=== PATIENT | female | born 1995 | race American Indian/Alaskan Native ===

== ENCOUNTER 2017-02-19 17:23 | Emergency (ER) | payer OTHER ==
[2017-02-19 17:24] VITALS: BMI 27.4
[2017-02-19 17:36] VITALS: BP 135/85; PULSE 84
[2017-02-19 17:43] VITALS: TEMP 99
[2017-02-19] MEDS ORDERED: guaiFENesin 200 mg/10 ml Syrup UD PO STA (17:51)
[2017-02-19] MEDS ORDERED: Amoxicillin-Clav 875-125 mg Tab PO STA (17:51)
--- NOTE | 2017-02-19 17:56 | ED PDOC ---
Arrival/HPI - General Historian: Patient - General Chief Complaint: ENT Problem Time Seen by Provider: 02/19/17 17:51 - History of Present Illness Narrative History of Present Illness (Text): 02/19/17 17:52 21yo female present with complaint of clear productive cough, sore throat, nasal congestion, facial pain, headache x 4days. States she was taking Nyquil without relieve. Denies fever, chills, sick contact, travel, any other complaint. (Ann Marie Mitchell) Past Medical History - Provider Review Nursing Documentation Reviewed: Yes - Past History Past History: No Previous - Infectious Disease Hx of Infectious Diseases: None - Tetanus Immunization Tetanus Immunization: Up to Date - Past Medical History Past Medical History: No Previous - Cardiac Hx Heart Murmur: Yes - Psychiatric Hx Depression: No Hx Emotional Abuse: No Hx Physical Abuse: No Hx Substance Use: No - Past Surgical History Past Surgical History: No Previous - Anesthesia Hx Anesthesia: No Hx Anesthesia Reactions: No Hx Malignant Hyperthermia: No - Suicidal Assessment Feels Threatened In Home Enviroment: No Family/Social History - Physician Review Nursing Documentation Reviewed: Yes Family/Social History: Unknown Family HX Smoking Status: Never Smoked Hx Alcohol Use: No Hx Substance Use: No Hx Substance Use Treatment: No Allergies/Home Meds Allergies/Adverse Reactions: Allergies No Known Allergies Allergy (Verified 02/19/17 17:36) Review of Systems - Physician Review All systems were reviewed & negative as marked: Yes - Review of Systems Constitutional: Normal Eyes: Normal ENT: Sore Throat, Rhinorrhea, Sinus Congestion Respiratory: Cough Cardiovascular: Normal Gastrointestinal: Normal Genitourinary Female: Normal Musculoskeletal: Normal Skin: Normal Neurological: Normal Endocrine: Normal Hemo/Lymphatic: Normal Psychiatric: Normal Physical Exam Vital Signs Reviewed: Yes Temperature: Afebrile Blood Pressure: Normal Pulse: Regular Respiratory Rate: Normal Appearance: Positive for: Well-Appearing, Non-Toxic, Comfortable Pain Distress: None Mental Status: Positive for: Alert and Oriented X 3 - Systems Exam Head: Present: Atraumatic, Normocephalic Pupils: Present: PERRL Extroacular Muscles: Present: EOMI Conjunctiva: Present: Normal Ears: Present: Normal Mouth: Present: Moist Mucous Membranes Pharnyx: Present: ERYTHEMA. No: EXUDATE, TONSILS ENLARGED, Peritonsilar Swelling, Uvular Deviation Nose (Internal): Present: Boggy (B/L), Other (Tenderness over the frontal sinus) Neck: Present: Normal Range of Motion Respiratory/Chest: Present: Clear to Auscultation, Good Air Exchange. No: Respiratory Distress, Accessory Muscle Use, Wheezes, Decreased Breath Sounds, Rales, Retracting, Rhonchi Cardiovascular: Present: Regular Rate and Rhythm, Normal S1, S2. No: Murmurs Abdomen: Present: Normal Bowel Sounds. No: Tenderness, Distention, Peritoneal Signs Back: Present: Normal Inspection Upper Extremity: Present: Normal Inspection. No: Cyanosis, Edema Lower Extremity: Present: Normal Inspection. No: Edema Neurological: Present: GCS=15, CN II-XII Intact, Speech Normal Skin: Present: Warm, Dry, Normal Color. No: Rashes Psychiatric: Present: Alert, Oriented x 3, Normal Insight, Normal Concentration Vital Signs Temp Pulse Resp BP Pulse Ox 02/19/17 18:07 16 99 02/19/17 17:43 99.0 F 84 18 135/85 98 02/19/17 17:32 99 F 84 18 135/85 98 Medical Decision Making ED Course and Treatment: I was available for consultation during PA evaluation. The chart was reviewed by me, and I agree with disposition. The documented history was done by the physician research and evaluation analyst. The documented physical exam was done by the physician research and evaluation analyst. The documented procedures were done by the physician research and evaluation analyst. ( Kelvin Holt) - Medication Orders Current Medication Orders: Discontinued Medications Amoxicillin/Clavulanate Potassium (Augmentin 875 Mg-125 Mg Tab) 1 tab PO STAT STA PRN Reason: Protocol Stop: 02/19/17 17:52 Last Admin: 02/19/17 18:08 Dose: 1 TAB Guaifenesin (Robitussin) 200 mg PO ONCE STA Stop: 02/19/17 17:52 Last Admin: 02/19/17 18:08 Dose: 200 MG Ibuprofen (Motrin Tab) 600 mg PO STAT STA Stop: 02/19/17 17:53 Last Admin: 02/19/17 18:08 Dose: 600 MG MAR Pain/Vitals Document 02/19/17 18:08 [email or web address] (Rec: 02/19/17 18:08 [email or web address] [facility] [place]-FAST- TRACK2) Pain Reassessment Is This A Pain ReAssessment? No Sleep Is patient sleeping during reassessment? 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 Ulcer: No History Surgical Site Infection Following: None - Disposition Have Diagnosis and Disposition been Completed?: Yes Disposition Time: 18:00 Patient Plan: Discharge - Disposition Diagnosis: Acute URI Disposition: HOME/ ROUTINE Discharge Instructions (ExitCare): Upper Respiratory Infection (ED) Additional Instructions: Follow up with your doctor Return to ED for any new or worsening symptoms Prescriptions: Amoxicillin/Clavulanate [Augmentin 875 MG-125 MG] 1 tab PO BID #14 tab Loratadine/Pseudoephedrine [Claritin-D 24 Hour Tablet] 1 each PO DAILY #20 tab.er.24h Benzonatate [Tessalon Perles] 100 mg PO TID #30 sgl Referrals: [facility] at [facility] [place] [Outside] - Follow up with primary
[2017-02-19 18:08] VITALS: RESP 16; O2SAT 99
== END 2017-02-19 18:08 | disposition home or self-care (01) ==
LOC: ED 17:23
DX: J06.9 Acute upper respiratory infection, unspecified (principal)

== ENCOUNTER 2017-08-30 18:37 | Emergency (ER) | payer OTHER ==
[2017-08-30 18:43] VITALS: BMI 31.6
[2017-08-30 18:45] VITALS: BP 132/92; PULSE 88; RESP 18; TEMP 98.6; O2SAT 99
--- NOTE | 2017-08-30 19:02 | ED PDOC ---
Arrival/HPI - General Chief Complaint: Cough, Cold, Congestion Time Seen by Provider: 08/30/17 18:49 - History of Present Illness Narrative History of Present Illness (Text): 08/30/17 19:03 21 yo F c/o 2-3 day h/o facial pain worse with bending, runny nose, nasal congestion and dry cough. Otherwise: (-) fever, (-) sore throat, (-) chills, (- ) SOB, (-) chest pain, (-) N/V/D, (-) abdominal pain, (-) flank pain, (-) urinary symptoms, (-) recent travel, (-) sick contacts. Past Medical History - Provider Review Nursing Documentation Reviewed: Yes - Past History Past History: No Previous - Infectious Disease Hx of Infectious Diseases: None - Tetanus Immunization Tetanus Immunization: Up to Date - Past Medical History Past Medical History: No Previous - Cardiac Hx Cardiac Disorders: Yes Hx Heart Murmur: Yes - Pulmonary Hx Respiratory Disorders: No - Neurological Hx Dizziness: No - HEENT Hx HEENT Disorder: No - Renal Hx Dialysis: No - Hematological/Oncological Hx Blood Disorders: No - Integumentary Hx Dermatological Disorder: No - Musculoskeletal/Rheumatological Hx Falls: No - Gastrointestinal Hx Fatty Liver Disease: No - Genitourinary/Gynecological Hx Bladder Cancer: No - Psychiatric Hx Depression: No Hx Emotional Abuse: No Hx Physical Abuse: No Hx Substance Use: No - Past Surgical History Past Surgical History: No Previous - Anesthesia Hx Anesthesia: No Hx Anesthesia Reactions: No Hx Malignant Hyperthermia: No - Suicidal Assessment Feels Threatened In Home Enviroment: No Family/Social History - Physician Review Nursing Documentation Reviewed: Yes Family/Social History: No Known Family HX Smoking Status: Never Smoked Hx Alcohol Use: No Hx Substance Use: No Hx Substance Use Treatment: No Allergies/Home Meds Allergies/Adverse Reactions: Allergies No Known Allergies Allergy (Verified 08/30/17 18:43) Review of Systems - Review of Systems Constitutional: Normal. absent: Fatigue, Weight Change, Fevers ENT: Normal, Rhinorrhea, Sinus Congestion. absent: Sore Throat Respiratory: Normal, Cough. absent: SOB, Sputum Musculoskeletal: Normal. absent: Arthralgias, Back Pain, Neck Pain Skin: Normal. absent: Rash, Pruritis, Skin Lesions Physical Exam - Physical Exam Narrative Physical Exam (Text): 08/30/17 19:02 GENERAL APPEARANCE: Patient is awake, alert, oriented x 3, in no acute distress. SKIN: Warm, dry; (-) cyanosis, (-) rash. (-) Decubitus Ulcer EYES: (-) conjunctival pallor, (-) scleral icterus, (-) conjunctival hemorrhage. ENMT: Mucous membranes moist. TMs: (-) erythema. Airway patent: (-) stridor. Pharynx: (-) erythema, (-) exudate. (+) Frontal and maxillary sinus tenderness. NECK: (-) tenderness, (-) stiffness, (-) meningismus, (-) lymphadenopathy. CHEST AND RESPIRATORY: (-) accessory muscle use. Lungs: (-) rales, (-) rhonchi, (-) wheezes, (-) rub; breath sounds equal bilaterally. HEART AND CARDIOVASCULAR: (-) irregularity; (-) murmur, (-) gallop, (-) rub. ABDOMEN AND GI: Soft; (-) tenderness, (-) guarding; (-) organomegaly; (-) mass ; (-) CVA tenderness. EXTREMITIES: (-) deformity; (-) cellulitis, (-) lymphangitis; (-) subungual hemorrhage; (-) edema. NEURO AND PSYCH: Mental status as above; (-) focal findings. Vital Signs Temp Pulse Resp BP Pulse Ox 08/30/17 18:44 98.6 F 88 18 132/92 H 99 Medical Decision Making ED Course and Treatment: 08/30/17 19:01 21 yo F c/o 2-3 day h/o facial pain, runny nose, nasal congestion and dry cough. Dx of sinusitis d/w the patient. Instructed to follow up with primary care physician in 1-2 days without fail. Advised to take medication as prescribed. Return to the emergency room at any time for any new or worsening symptoms. Patient states she fully agrees with and understands discharge instructions. States that she agrees with the plan and disposition. Verbalized and repeated discharge instructions and plan. I have given the patient opportunity to ask any additional questions. - PA / SPECIAL EDUCATION EDUCATIONAL ASSISTANT / Resident Statement MD/DO has reviewed & agrees with the documentation as recorded. Disposition/Present on Arrival - Present on Arrival Any Indicators Present on Arrival: No History of DVT/PE: No History of Uncontrolled Diabetes: No Urinary Catheter: No History of Decub. Ulcer: No History Surgical Site Infection Following: None - Disposition Have Diagnosis and Disposition been Completed?: Yes Diagnosis: Sinusitis Disposition: HOME/ ROUTINE Disposition Time: 18:59 Patient Plan: Discharge Patient Problems: Current Active Problems Problem Status Onset Sinusitis Acute Condition: STABLE Discharge Instructions (ExitCare): Sinusitis (ED) Print Language: ARGENTINE Additional Instructions: Thank you for letting us take care of you today. You were treated for sinusitis. The emergency medical care you received today was directed at your acute symptoms. If you were prescribed any medication, please fill it and take as directed. It may take several days for your symptoms to resolve. Return to the Emergency Department if your symptoms worsen, do not improve, or if you have any other problems. Please contact your doctor in 2 days for re-evaluation and follow up. Bring any paperwork you were given at discharge with you along with any medications you are taking to your follow up visit. Our treatment cannot replace ongoing medical care by a primary care provider (PCP) outside of the emergency department. Thank you for allowing the [employer] team to be part of your care today. Prescriptions: Amoxicillin/Potassium Clav [Augmentin 500-125 Tablet] 1 each PO TID #30 tablet Fluticasone Propionate [Flonase] 2 spr RONEL DAILY #1 bottle Referrals: Chris Muir MD [Primary Care Provider] - Follow up with primary Forms: [employer] (Lithuanian), WORK NOTE
[2017-08-30] MEDS ORDERED: Amoxicillin-Clav 500-125 mg Tab PO STA (19:39)
== END 2017-08-30 19:51 | disposition home or self-care (01) ==
LOC: ED 18:37
DX: J32.9 Chronic sinusitis, unspecified (principal)

== ENCOUNTER 2018-01-23 08:36 | Emergency (ER) | payer OTHER ==
[2018-01-23 08:37] VITALS: BMI 32.3
[2018-01-23 08:41] VITALS: PULSE 81; RESP 18; TEMP 97.9; O2SAT 99
[2018-01-23] MEDS ORDERED: Albuterol-Ipratrop 3 mg / 0.5 (3 ml) UD IH STA (08:51)
[2018-01-23] MEDS ORDERED: guaiFENesin DM 200 mg-20 mg/10 ml UD PO ONE (08:51)
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
--- NOTE | 2018-01-24 10:23 | CARD ---
APPROVED REPORT EKG Measurement Heart [id number] <Conclusion> Sinus rhythm with 1st degree AV block No change
== END 2018-01-23 09:59 | disposition left against medical advice (07) ==
LOC: ED 08:36
DX: R42 Dizziness and giddiness (principal); R05 Cough

== ENCOUNTER 2018-02-04 19:41 | Emergency (ER) | payer OTHER ==
[2018-02-04 19:42] VITALS: BMI 32.3
--- NOTE | 2018-02-04 21:08 | ED PDOC ---
Arrival/HPI - General Chief Complaint: Flu-like Symptoms Time Seen by Provider: 02/04/18 19:56 Historian: Patient - History of Present Illness Narrative History of Present Illness (Text): 02/04/18 21:07 This 22 yo female presents to this ED c/o cough x 2 weeks. Patient stated she was Dx. with Influenza during last ED visit. Patient was prescribed Tamiflu, and cough medication. However, patient continues with cough. Denies fever, sob , cp, abdominal pain, or urinary symptoms. Time/Duration: Other (see hpi) Context: Home Past Medical History - Provider Review Nursing Documentation Reviewed: Yes - Past History Past History: No Previous - Infectious Disease Hx of Infectious Diseases: None - Tetanus Immunization Tetanus Immunization: Up to Date - Past Medical History Past Medical History: No Previous - Cardiac Hx Cardiac Disorders: Yes Hx Heart Murmur: Yes - Pulmonary Hx Respiratory Disorders: No - Neurological Hx Dizziness: No - HEENT Hx HEENT Disorder: No - Renal Hx Dialysis: No - Hematological/Oncological Hx Blood Disorders: No - Integumentary Hx Dermatological Disorder: No - Musculoskeletal/Rheumatological Hx Falls: No - Gastrointestinal Hx Fatty Liver Disease: No - Genitourinary/Gynecological Hx Bladder Cancer: No - Psychiatric Hx Depression: No Hx Emotional Abuse: No Hx Physical Abuse: No Hx Substance Use: No - Past Surgical History Past Surgical History: No Previous - Anesthesia Hx Anesthesia: No Hx Anesthesia Reactions: No Hx Malignant Hyperthermia: No - Suicidal Assessment Feels Threatened In Home Enviroment: No Family/Social History - Physician Review Nursing Documentation Reviewed: Yes Family/Social History: Other (noncontributory) Smoking Status: Never Smoked Hx Alcohol Use: No Hx Substance Use: No Hx Substance Use Treatment: No Allergies/Home Meds Allergies/Adverse Reactions: Allergies No Known Allergies Allergy (Verified 02/04/18 20:22) Review of Systems - Review of Systems Constitutional: Normal. absent: Fatigue, Weight Change, Fevers Eyes: Normal ENT: Normal. absent: Sore Throat, Rhinorrhea Respiratory: Cough. absent: SOB, Sputum, Wheezing Cardiovascular: Normal. absent: Chest Pain, Palpitations Gastrointestinal: Normal. absent: Abdominal Pain, Nausea, Vomiting Genitourinary Female: Normal. absent: Dysuria, Frequency, Hematuria Musculoskeletal: Normal Skin: Normal. absent: Rash, Cellulitis Neurological: Normal. absent: Headache, Focal Weakness, Gait Changes, Speech Changes, Facial Droop Endocrine: Normal Hemo/Lymphatic: Normal Psychiatric: Normal Physical Exam Vital Signs Temp Pulse Resp BP Pulse Ox 02/04/18 20:24 98.4 F 83 18 123/83 98 02/04/18 20:23 98.4 F 85 18 123/83 98 Temperature: Afebrile Blood Pressure: Normal Pulse: Regular Respiratory Rate: Normal Appearance: Positive for: Well-Appearing, Non-Toxic, Comfortable Pain Distress: None Mental Status: Positive for: Alert and Oriented X 3 - Systems Exam Head: Present: Atraumatic, Normocephalic Pupils: Present: PERRL Extroacular Muscles: Present: EOMI Conjunctiva: Present: Normal Mouth: Present: Moist Mucous Membranes Pharnyx: Present: Normal. No: ERYTHEMA, EXUDATE, TONSILS ENLARGED Neck: Present: Normal Range of Motion Respiratory/Chest: Present: Clear to Auscultation, Good Air Exchange. No: Respiratory Distress, Accessory Muscle Use, Wheezes, Decreased Breath Sounds, Rales, Retracting, Rhonchi, Tender to Palpation Cardiovascular: Present: Regular Rate and Rhythm, Murmurs (known murmur by patient), Normal S1, S2 Abdomen: Present: Normal Bowel Sounds. No: Tenderness, Distention, Peritoneal Signs Back: Present: Normal Inspection. No: CVA Tenderness Upper Extremity: Present: Normal Inspection. No: Cyanosis, Edema Lower Extremity: Present: Normal Inspection. No: Edema Neurological: Present: GCS=15, CN II-XII Intact, Speech Normal, Motor Func Grossly Intact, Normal Sensory Function, Normal Cerebellar Funct, Gait Normal Skin: Present: Warm, Dry, Normal Color. No: Rashes Psychiatric: Present: Alert, Oriented x 3, Normal Insight, Normal Concentration Medical Decision Making ED Course and Treatment: 02/04/18 22:40 Patient is requesting ABX. Re-evaluation Time: 22:40 Reassessment Condition: Re-examined, Improved - RAD Interpretation Narrative RAD Interpretations (Text): 02/04/18 22:40 cxr: NAD Radiology Orders: 02/04/18 21:17 CHEST TWO VIEWS (PA/LAT) [RAD] Stat Disposition/Present on Arrival - Present on Arrival Any Indicators Present on Arrival: No History of DVT/PE: No History of Uncontrolled Diabetes: No Urinary Catheter: No History of Decub. Ulcer: No History Surgical Site Infection Following: None - Disposition Have Diagnosis and Disposition been Completed?: Yes Diagnosis: Bronchitis Disposition: HOME/ ROUTINE Disposition Time: 22:41 Patient Plan: Discharge Patient Problems: Current Active Problems Problem Status Onset Bronchitis Acute Condition: GOOD Discharge Instructions (ExitCare): Acute Bronchitis Additional Instructions: Call private doctor for follow up visit in 1-2 days. Take medication as instructed. Prescriptions: Azithromycin [Z-Constantin] 250 mg PO DAILY #4 tab Promethazine [Phenergan Syrup] 6.25 mg PO Q4H PRN #120 ml PRN Reason: Cough Referrals: Chris Muir MD [Primary Care Provider] - Follow up with primary Forms: [email or web address] (Cook Islander), WORK NOTE
[2018-02-04] MEDS ORDERED: Promethazine 6.25 MG/5 ML CUP PO STA (22:43)
[2018-02-05 02:36] VITALS: BP 122/78; PULSE 72; RESP 16; TEMP 98; O2SAT 99
--- NOTE | 2018-02-05 08:32 | RAD ---
HISTORY: cough COMPARISON: 06/28/2015 TECHNIQUE: Chest PA and lateral FINDINGS: LUNGS: No active pulmonary disease. PLEURA: No significant pleural effusion identified. No pneumothorax apparent. CARDIOVASCULAR: Normal. OSSEOUS STRUCTURES: No significant abnormalities. VISUALIZED UPPER ABDOMEN: Normal. OTHER FINDINGS: None. IMPRESSION: No active disease. No significant interval change compared to the prior examination(s). Concordant results with the preliminary interpretation rendered by the emergency department physician procedure.
== END 2018-02-04 21:00 | disposition home or self-care (01) ==
LOC: ED 19:41
DX: J40 Bronchitis, not specified as acute or chronic (principal)

== ENCOUNTER 2018-02-24 19:42 | Emergency (ER) | payer OTHER ==
[2018-02-24 19:42] VITALS: BMI 32.3
[2018-02-24 20:21] VITALS: RESP 18; O2SAT 99
[2018-02-24] MEDS ORDERED: Sodium Chloride 0.9% 2,000 ML IV STA (20:32)
--- NOTE | 2018-02-24 20:45 | ED PDOC ---
Arrival/HPI - General Chief Complaint: GI Problem Time Seen by Provider: 02/24/18 20:25 Historian: Patient - History of Present Illness Narrative History of Present Illness (Text): 02/24/18 20:45 A 22 year old female presents to the emergency department complaining nonbloody bilious vomiting for 2 days. Patient notes associated right sided abdominal pain. Patient notes chills but denies any fever, diarrhea, chest pain, shortness of breath or any other complaints. Patients last LMP was 1 week ago. Patient denies any contraceptive use. Time/Duration: Other (2 days) Symptom Course: Unchanged Context: Home Past Medical History - Provider Review Nursing Documentation Reviewed: Yes - Past History Past History: No Previous - Infectious Disease Hx of Infectious Diseases: None - Tetanus Immunization Tetanus Immunization: Up to Date - Past Medical History Past Medical History: No Previous - Cardiac Hx Cardiac Disorders: Yes Hx Heart Murmur: Yes - Pulmonary Hx Respiratory Disorders: No - Neurological Hx Dizziness: No - HEENT Hx HEENT Disorder: No - Renal Hx Dialysis: No - Hematological/Oncological Hx Blood Disorders: No - Integumentary Hx Dermatological Disorder: No - Musculoskeletal/Rheumatological Hx Falls: No - Gastrointestinal Hx Fatty Liver Disease: No - Genitourinary/Gynecological Hx Bladder Cancer: No - Psychiatric Hx Depression: No Hx Emotional Abuse: No Hx Physical Abuse: No Hx Substance Use: No - Past Surgical History Past Surgical History: No Previous - Anesthesia Hx Anesthesia: No Hx Anesthesia Reactions: No Hx Malignant Hyperthermia: No - Suicidal Assessment Feels Threatened In Home Enviroment: No Family/Social History - Physician Review Nursing Documentation Reviewed: Yes Family/Social History: No Known Family HX Smoking Status: Never Smoked Hx Alcohol Use: No Hx Substance Use: No Hx Substance Use Treatment: No Allergies/Home Meds Allergies/Adverse Reactions: Allergies No Known Allergies Allergy (Verified 02/24/18 20:18) Review of Systems - Physician Review All systems were reviewed & negative as marked: Yes - Review of Systems Constitutional: absent: Fevers, Night Sweats Respiratory: absent: SOB Cardiovascular: absent: Chest Pain Gastrointestinal: Abdominal Pain, Vomiting. absent: Diarrhea Physical Exam Vital Signs Reviewed: Yes Vital Signs Temp Pulse Resp BP Pulse Ox 02/24/18 20:18 99.9 F H 91 H 18 137/98 H 99 Temperature: Febrile Blood Pressure: Hypertensive Pulse: Tachycardic Respiratory Rate: Normal Appearance: Positive for: Well-Appearing, Non-Toxic, Comfortable Pain Distress: None Mental Status: Positive for: Alert and Oriented X 3 - Systems Exam Head: Present: Atraumatic, Normocephalic Pupils: Present: PERRL Extroacular Muscles: Present: EOMI Conjunctiva: Present: Normal Mouth: Present: Moist Mucous Membranes Neck: Present: Normal Range of Motion Respiratory/Chest: Present: Clear to Auscultation, Good Air Exchange. No: Respiratory Distress, Accessory Muscle Use Cardiovascular: Present: Regular Rate and Rhythm, Normal S1, S2. No: Murmurs Abdomen: Present: Tenderness (Right upper and lower quadrant tenderness). No: Distention, Peritoneal Signs, Rebound, Guarding Back: Present: Normal Inspection Upper Extremity: Present: Normal Inspection. No: Cyanosis, Edema Lower Extremity: Present: Normal Inspection. No: Edema Neurological: Present: GCS=15, CN II-XII Intact, Speech Normal Skin: Present: Warm, Dry, Normal Color. No: Rashes Psychiatric: Present: Alert, Oriented x 3, Normal Insight, Normal Concentration Medical Decision Making ED Course and Treatment: 02/24/18 20:45 Impression: A 22 year old female with bilious vomiting and right sided abdominal pain Plan: -- Abdomen ultrasound -- Labs -- Urine culture and Urinalysis -- Toradol, Zofran and IV fluids -- Reassess and disposition Progress Notes: 02/24/18 22:20 US Abdomen shows: There is a negative sonographic Mann's sign per extractions technologist. No gallstones. No pericholecystic fluid. The gallbladder wall measures 2.6 mm which is within normal limits. The common bile duct measures 2.5 mm which is within normal limits. The liver is normal. The spleen measures 9.9 cm and is normal. The pancreas is suboptimally visualized. No hydronephrosis. Both kidneys measure approximately 10 cm in length. IMPRESSION: No acute findings. - Lab Interpretations Lab Results: 02/24/18 20:40 02/24/18 20:40 Lab Results 02/24/18 21:44: Urine Color Yellow, Urine Appearance Sl cloudy, Urine pH 8.5, Ur Specific [place] 1.020, Urine Protein 30 H, Urine Glucose (UA) Negative, Urine Ketones 15 H, Urine Blood Negative, Urine Nitrate Negative, Urine Bilirubin Negative, Urine Urobilinogen 1.0 H, Ur Leukocyte Esterase Negative, Urine RBC Negative, Urine WBC 2 - 5, Ur Epithelial Cells Many, Amorphous Sediment Few, Urine Bacteria Few 02/24/18 20:40: Beta HCG, Quant < 2.39 02/24/18 20:40: Sodium 141, Potassium 4.8, Chloride 102, Carbon Dioxide 25, Anion Gap 18, BUN 10, Creatinine 0.8, Est GFR ( Amer) > 60, Est GFR (Non- Af Amer) > 60, Random Glucose 110, Calcium 9.9, Total Bilirubin 0.7, AST 29, ALT 36, Alkaline Phosphatase 78, Total Protein 8.8 H, Albumin 5.0 H, Globulin 3.8, Albumin/Globulin Ratio 1.3, Lipase 86 02/24/18 20:40: PT 12.2, INR 1.07 02/24/18 20:40: WBC 10.0 D, RBC 5.06, Hgb 14.2, Hct 42.5, MCV 84.0, MCH 28.1, MCHC 33.4, RDW 14.5, Plt Count 396, MPV 9.7, Gran % 93.1 H, Lymph % (Auto) 4.3 L , [place] % (Auto) 2.3, Eos % (Auto) 0.2 L, Baso % (Auto) 0.1, Gran # 9.28 H, Lymph # (Auto) 0.4 L, [place] # (Auto) 0.2, Eos # (Auto) 0.0, Baso # (Auto) 0.01, Neutrophils % (Manual) Pending, Lymphocytes % (Manual) Pending, Monocytes % ( Manual) Pending I have reviewed the lab results: Yes - RAD Interpretation Radiology Orders: 02/24/18 20:30 ABDOMEN COMPLETE [US] Stat Perishable Freight Inspector: Radiologist - Medication Orders Current Medication Orders: Discontinued Medications Sodium Chloride (Sodium Chloride 0.9%) 2,000 mls @ 999 mls/hr IV .Q2H1M STA Stop: 02/24/18 22:32 Last Admin: 02/24/18 21:50 Dose: 999 mls/hr eMAR Start Stop Document 02/24/18 21:50 LA (Rec: 02/24/18 21:51 LA [id number]) Intravenous Solution Start Date 02/24/18 Start Time 21:50 End Date 02/24/18 End time 23:50 Total Infusion Time 120 Ketorolac Tromethamine (Toradol) 30 mg IVP STAT STA Stop: 02/24/18 20:33 Last Admin: 02/24/18 21:49 Dose: 30 mg MAR Pain Assessment Document 02/24/18 21:49 LA (Rec: 02/24/18 21:49 LA [id number]) Pain Reassessment Is this a pain reassessment? No Sleep Is patient sleeping during reassessment? No Location Pain Location Body Site Abdomen Description Description Cramping Intensity of Pain at present 9 IVP Administration Document 02/24/18 21:49 LA (Rec: 02/24/18 21:49 LA [id number]) Charges for Administration # of IVP Administrations 1 Ondansetron HCl (Zofran Inj) 8 mg IVP STAT STA Stop: 02/24/18 20:33 Last Admin: 02/24/18 21:49 Dose: 8 mg IVP Administration Document 02/24/18 21:49 LA (Rec: 02/24/18 21:50 LA [id number]) Charges for Administration # of IVP Administrations 1 - Scribe Statement The provider has reviewed the documentation as recorded by the Ray Rao Provider Scribe Attestation: All medical record entries made by the Scribe were at my direction and personally dictated by me. I have reviewed the chart and agree that the record accurately reflects my personal performance of the history, physical exam, medical decision making, and the department course for this patient. I have also personally directed, reviewed, and agree with the discharge instructions and disposition. Disposition/Present on Arrival - Present on Arrival Any Indicators Present on Arrival: No History of DVT/PE: No History of Uncontrolled Diabetes: No Urinary Catheter: No History of Decub. Ulcer: No History Surgical Site Infection Following: None - Disposition Have Diagnosis and Disposition been Completed?: Yes Diagnosis: Vomiting, Abdominal pain, Constipation Disposition: HOME/ ROUTINE Disposition Time: 22:43 Patient Plan: Discharge Condition: GOOD Discharge Instructions (ExitCare): Constipation, Adult (DC), Nausea and Vomiting, Adult (DC) Additional Instructions: Lisseth - Suziry that you are not feeling well. Zofran ODT is for nausea or vomiting. It is absorbed on your tongue, so you do not have to swallow it. Drink plenty of water. Take the Mag Citrate tomorrow morning so you can have a BM. Return to us if problems. Follow up with your doctor next week. BGest- Dr. Teofilo Baird Referrals: Chris Muir MD [Primary Care Provider] - Follow up with primary Forms: [employer] (Ukrainian)
[2018-02-24 21:01] LABS: BASO # 0.01 K/mm3 (0.0-2.0); BASO % 0.1 % (0.0-3.0); EOS % 0.2 % (1.5-5.0); GRAN # 9.28 (1.4-6.5); GRAN % 93.1 % (50.0-68.0); HEMOGLOBIN 14.2 g/dL (12.0-16.0); LYMPH # 0.4 (1.2-3.4); LYMPH % 4.3 % (22.0-35.0); MEAN CORPUSCULAR HEMOGLOBIN 28.1 pg (25.0-35.0); MEAN CORPUSCULAR HGB CONC 33.4 g/dl (31.0-37.0); MEAN PLATELET VOLUME 9.7 fl (7.0-11.0); MONO # 0.2 (0.1-0.6); MONO % 2.3 % (1.0-6.0); PLATELET COUNT 396 10^3/uL (120.0-450.0); RBC 5.06 10^6/uL (3.5-6.1); RED CELL DISTRIBUTION WIDTH 14.5 % (11.5-14.5)
[2018-02-24 21:14] LABS: INR 1.07 (0.93-1.08); PROTHROMBIN TIME 12.2 SECONDS (9.4-12.5)
[2018-02-24 21:23] LABS: ALB/GLOB RATIO 1.3 (1.1-1.8); ALT/SGPT 36 U/L (7-56); AST/SGOT 29 U/L (14-36); BLOOD UREA NITROGEN 10 mg/dL (7-21); CALCIUM 9.9 mg/dL (8.4-10.5); GFR AFRICAN-AMERICAN > 60; GFR NON-AFRICAN AMERICAN > 60; LIPASE 86 U/L (23-300)
[2018-02-24 22:12] LABS: PH,URINE 8.5 (4.7-8.0); URINE BILIRUBIN NEGATIVE (NEGATIVE); URINE BLOOD NEGATIVE (NEGATIVE); URINE GLUCOSE (UA) NEGATIVE (NEGATIVE); URINE LEUKOCYTE ESTERASE NEGATIVE Leu/uL (NEGATIVE); URINE PROTEIN 30 mg/dL (<30 mg/dL)
[2018-02-24 22:17] LABS: URINE COLOR YELLOW (YELLOW)
--- NOTE | 2018-02-24 22:17 | US ---
EXAM: US Abdomen Complete EXAM DATE/TIME: 02/24/2018 8:30 PM CLINICAL HISTORY: 22 years old, female; Pain; Abdominal pain; Epigastric; Additional info: Biliary colic//[place] TECHNIQUE: Real-time ultrasound of the abdomen (complete) with image documentation. COMPARISON: No relevant prior studies available. FINDINGS: There is a negative sonographic Mann's sign per vascular technologist. No gallstones. No pericholecystic fluid. The gallbladder wall measures 2.6 mm which is within normal limits. The common bile duct measures 2.5 mm which is within normal limits. The liver is normal. The spleen measures 9.9 cm and is normal. The pancreas is suboptimally visualized. No hydronephrosis. Both kidneys measure approximately 10 cm in length. IMPRESSION: No acute findings.
[2018-02-24 22:29] LABS: URINE AMORPHOUS SEDIMENT FEW; URINE BACTERIA FEW (NEG); URINE EPITHELIAL CELLS MANY /hpf (0-5); URINE RBC NEGATIVE /hpf (0-2)
[2018-02-24 22:30] LABS: URINE APPEARANCE SL CLOUDY (CLEAR)
[2018-02-24] MEDS ORDERED: Magnesium Citrate Oral SOL (300 ml) PO ONE (22:42)
[2018-02-24 22:55] LABS: LYMPHOCYTE 3 % (22.0-35.0); NEUTROPHIL 93 % (50.0-70.0)
[2018-02-24 22:56] LABS: ATYPICAL LYMPHOCYTE 3 % (0.0-0.0); MONOCYTE 1 % (1.0-6.0); PLATELET ESTIMATE NORMAL (NORMAL)
[2018-02-24 23:56] VITALS: BP 135/87; PULSE 89; TEMP 98
== END 2018-02-24 23:53 | disposition home or self-care (01) ==
LOC: ED 19:42
DX: K59.00 Constipation, unspecified (principal); R11.14 Bilious vomiting; R10.9 Unspecified abdominal pain
CPT/HCPCS: 76700; 80053; 81001; 81025; 83690; 84702; 85025; 85610; 87086; 96361; 96374; 96375; 99284; J1885; J2405; J7040

== ENCOUNTER 2018-05-30 21:03 | Emergency (ER) | payer OTHER ==
[2018-05-30 21:04] VITALS: BMI 32.3
[2018-05-30 21:12] VITALS: RESP 16; TEMP 98.3; O2SAT 99
--- NOTE | 2018-05-30 21:32 | ED PDOC ---
Arrival/HPI - General Chief Complaint: Abdominal Pain Time Seen by Provider: 05/30/18 21:31 Historian: Patient - History of Present Illness Narrative History of Present Illness (Text): 05/30/18 21:31 This 22 yo female presents to this ED c/o Vaginal itching with faulty smell x 2 days. Patient stated that symptoms are similar when she was Dx. vaginal candidiasis a few months ago. Patient denies vaginal discharge, fever, vaginal bleeding, STD exposure, or abdominal pain. Time/Duration: Other (see hpi) Context: Home Past Medical History - Provider Review Nursing Documentation Reviewed: Yes - Past History Past History: No Previous - Infectious Disease Hx of Infectious Diseases: None - Tetanus Immunization Tetanus Immunization: Up to Date - Past Medical History Past Medical History: No Previous - Cardiac Hx Cardiac Disorders: Yes Hx Heart Murmur: Yes - Pulmonary Hx Respiratory Disorders: No - Neurological Hx Neurological Disorder: No - HEENT Hx HEENT Disorder: No - Renal Hx Dialysis: No - Endocrine/Metabolic Hx Endocrine Disorders: No - Hematological/Oncological Hx Blood Disorders: No - Integumentary Hx Dermatological Disorder: No - Musculoskeletal/Rheumatological Hx Musculoskeletal Disorders: No - Gastrointestinal Hx Gastrointestinal Disorders: No - Genitourinary/Gynecological Hx Genitourinary Disorders: Yes Other/Comment: YEAST INFECTION - Psychiatric Hx Depression: No Hx Emotional Abuse: No Hx Physical Abuse: No Hx Substance Use: No - Past Surgical History Past Surgical History: No Previous - Anesthesia Hx Anesthesia: No Hx Anesthesia Reactions: No Hx Malignant Hyperthermia: No - Suicidal Assessment Feels Threatened In Home Enviroment: No Family/Social History - Physician Review Nursing Documentation Reviewed: Yes Family/Social History: Other (noncontributory) Smoking Status: Never Smoked Hx Alcohol Use: No Hx Substance Use: No Hx Substance Use Treatment: No Allergies/Home Meds Allergies/Adverse Reactions: Allergies No Known Allergies Allergy (Verified 05/30/18 21:06) Review of Systems - Review of Systems Constitutional: Normal. absent: Fatigue, Weight Change, Fevers Eyes: Normal ENT: Normal Respiratory: Normal. absent: SOB Cardiovascular: Normal. absent: Chest Pain Gastrointestinal: Normal. absent: Abdominal Pain, Nausea, Vomiting Genitourinary Female: Other (See hpi). absent: Dysuria, Frequency, Hematuria, Urine Output Changes, Vaginal Bleeding, Vaginal Discharge Musculoskeletal: Normal Skin: Normal. absent: Rash Neurological: Normal. absent: Headache, Dizziness, Focal Weakness Endocrine: Normal Hemo/Lymphatic: Normal Psychiatric: Normal Physical Exam Vital Signs Temp Pulse Resp BP Pulse Ox 05/30/18 21:07 98.3 F 80 16 138/93 H 99 Temperature: Afebrile Blood Pressure: Normal Pulse: Regular Respiratory Rate: Normal Appearance: Positive for: Well-Appearing, Non-Toxic, Comfortable Pain Distress: None Mental Status: Positive for: Alert and Oriented X 3 - Systems Exam Head: Present: Atraumatic, Normocephalic Pupils: Present: PERRL Extroacular Muscles: Present: EOMI Conjunctiva: Present: Normal Mouth: Present: Moist Mucous Membranes Neck: Present: Normal Range of Motion Respiratory/Chest: Present: Clear to Auscultation, Good Air Exchange. No: Respiratory Distress, Accessory Muscle Use Cardiovascular: Present: Regular Rate and Rhythm, Normal S1, S2. 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 No: Vaginal Bleeding, Vaginal Lesions, Adenexal Tenderness Back: Present: Normal Inspection Upper Extremity: Present: Normal Inspection, Normal ROM Lower Extremity: Present: Normal Inspection, Normal ROM Neurological: Present: GCS=15, CN II-XII Intact, Speech Normal, Motor Func Grossly Intact, Normal Sensory Function, Normal Cerebellar Funct Skin: Present: Warm, Dry, Normal Color. No: Rashes Psychiatric: Present: Alert, Oriented x 3, Normal Insight, Normal Concentration Medical Decision Making ED Course and Treatment: 05/30/18 21:43 Re-evaluation. Patient feels better. Discussed results and plan with patient who expresses understanding. All questions answered and there is agreement with the plan to discharge home with instructions. Patient stable for discharge. Return if symptoms persist or worsen. Re-evaluation Time: 21:43 Reassessment Condition: Re-examined, Improved Disposition/Present on Arrival - Present on Arrival Any Indicators Present on Arrival: No History of DVT/PE: No History of Uncontrolled Diabetes: No Urinary Catheter: No History of Decub. Ulcer: No History Surgical Site Infection Following: None - Disposition Have Diagnosis and Disposition been Completed?: Yes Diagnosis: Vaginal itching Disposition: HOME/ ROUTINE Disposition Time: 21:44 Patient Plan: Discharge Patient Problems: Current Active Problems Problem Status Onset Vaginal itching Acute Condition: GOOD Discharge Instructions (ExitCare): Vaginal Yeast Infection (DC) Additional Instructions: Call private doctor for follow up visit in 1-2 days. Take medication as instructed. Return to emergency if symptoms worsen. Prescriptions: Fluconazole [Diflucan] 150 mg PO DAILY PRN #1 tab PRN Reason: Itching / Pruritus Referrals: Rochelle Cat MD [Staff Provider] - Follow up with primary [facility] [Outside] - Follow up with primary Forms: [employer] (Burmese)
[2018-05-30 22:17] VITALS: BP 128/76; PULSE 78
== END 2018-05-30 22:15 | disposition home or self-care (01) ==
LOC: ED 21:03
DX: L29.2 Pruritus vulvae (principal)

== ENCOUNTER 2018-06-01 15:58 | Emergency (ER) | payer OTHER ==
[2018-06-01 15:58] VITALS: BMI 32.3
--- NOTE | 2018-06-01 16:34 | ED PDOC ---
Arrival/HPI - General Chief Complaint: ENT Problem Time Seen by Provider: 06/01/18 16:18 Historian: Patient - History of Present Illness Narrative History of Present Illness (Text): 06/01/18 16:28 22 yo female come in for evaluation of throat irritation developed for past few hours " after was cleaning in my basement and not sure if anything got in my throat". Pt sts, " my voice is raspy now, have throat pain now". Pt also reports , some vaginal irritation. Pt admits, was seen here last week when was diagnosed with candidal vaginitis, received Rx: Diflucan. Pt sts, " itchiness improved but still has some discomfort with urination". Otherwise, pt denies fever, chills, headache, dizziness, throat swelling or tightness, drooling, dysphagia, dyspnea, CP, SOB, wheezing, abd. pain, N/V/D, hematuria, back pain. Ambulate Ed foe evaluation, not in any apparent distress. Past Medical History - Provider Review Nursing Documentation Reviewed: Yes - Travel History Have you recently traveled outside [place] w/in the past 3 mons?: No - Past History Past History: No Previous - Infectious Disease Hx of Infectious Diseases: None - Tetanus Immunization Tetanus Immunization: Up to Date - Past Medical History Past Medical History: No Previous - Cardiac Hx Cardiac Disorders: Yes Hx Heart Murmur: Yes - Pulmonary Hx Respiratory Disorders: No - Neurological Hx Neurological Disorder: No - HEENT Hx HEENT Disorder: No - Renal Hx Renal Disorder: No - Endocrine/Metabolic Hx Endocrine Disorders: No - Hematological/Oncological Hx Blood Disorders: No - Integumentary Hx Dermatological Disorder: No - Musculoskeletal/Rheumatological Hx Musculoskeletal Disorders: No - Gastrointestinal Hx Gastrointestinal Disorders: No - Genitourinary/Gynecological Hx Genitourinary Disorders: Yes Other/Comment: YEAST INFECTION - Psychiatric Hx Psychophysiologic Disorder: No Hx Substance Use: No - Past Surgical History Past Surgical History: No Previous - Anesthesia Hx Anesthesia: No Hx Anesthesia Reactions: No Hx Malignant Hyperthermia: No - Suicidal Assessment Feels Threatened In Home Enviroment: No Family/Social History - Physician Review Nursing Documentation Reviewed: Yes Family/Social History: No Known Family HX Smoking Status: Never Smoked Hx Alcohol Use: No Hx Substance Use: No Hx Substance Use Treatment: No Allergies/Home Meds Allergies/Adverse Reactions: Allergies No Known Allergies Allergy (Verified 06/01/18 16:02) Review of Systems - Review of Systems Constitutional: Normal Eyes: Normal ENT: Sore Throat Respiratory: Normal. absent: SOB, Cough, Sputum, Wheezing Cardiovascular: Normal. absent: Chest Pain, Palpitations Gastrointestinal: Normal Genitourinary Female: Dysuria. absent: Frequency, Hematuria, Vaginal Bleeding, Vaginal Discharge Musculoskeletal: Normal Skin: Normal. absent: Rash Neurological: Normal Endocrine: Normal Hemo/Lymphatic: Normal Psychiatric: Normal Physical Exam Vital Signs Reviewed: Yes Vital Signs Temp Pulse Resp BP Pulse Ox 06/01/18 16:02 98.5 F 76 17 130/90 97 Temperature: Afebrile Blood Pressure: Normal Pulse: Regular Respiratory Rate: Normal Appearance: Positive for: Well-Appearing, Non-Toxic, Comfortable Pain Distress: None Mental Status: Positive for: Alert and Oriented X 3 - Systems Exam Head: Present: Normocephalic Conjunctiva: Present: Normal Ears: Present: NORMAL TM (B/L), Normal Canal. No: Erythema Mouth: Present: Moist Mucous Membranes, Normal Lips. No: Drooling Pharnyx: Present: ERYTHEMA (mild B/L), Other (uvula midline, no edema.). No: EXUDATE, TONSILS ENLARGED Neck: Present: Trachea Midline. No: JVD, Bruit Respiratory/Chest: Present: Clear to Auscultation, Good Air Exchange. No: Respiratory Distress, Accessory Muscle Use Cardiovascular: Present: Regular Rate and Rhythm, Normal S1, S2. No: Murmurs Abdomen: No: Tenderness, Distention, Peritoneal Signs, Rebound, Guarding Back: No: CVA Tenderness Upper Extremity: Present: Normal Inspection Lower Extremity: Present: Normal Inspection, NORMAL PULSES, Normal ROM. No: CALF TENDERNESS, Swelling, Deformity Neurological: Present: GCS=15, Speech Normal Skin: Present: Warm, Dry, Normal Color. No: Rashes Psychiatric: Present: Alert, Oriented x 3, Normal Insight, Normal Concentration Medical Decision Making ED Course and Treatment: 06/01/18 On re-evaluation, pt is afebrile, hemodynamicaly stable. Non-toxic. PulseOx 97% RA ENT: no acute findings. Uvula midline, no edema. Neck: Supple, (-) meningeal sign. Lungs: CTA B/L, BS equal B/L Abd: benign, (-) guarding, (-) rebound back: (-) CVA tenderness Neurologicaly intact,. UA results review and appears normal. Pt has clinical findings c/w throat pain r/o allergic reaction. Vulvovaginosis. Pt advised. ref. to f/u with PMD, [facility] In 2-3 days for re-evaluation. return if any new changes. - Lab Interpretations Lab Results: Lab Results 06/01/18 16:40: Urine Color Yellow, Urine Appearance Clear, Urine pH 6.0, Ur Specific [place] 1.025, Urine Protein Negative, Urine Glucose (UA) Negative, Urine Ketones Trace H, Urine Blood Negative, Urine Nitrate Negative, Urine Bilirubin Negative, Urine Urobilinogen 2.0 H, Ur Leukocyte Esterase Trace H, Urine RBC 0 - 2, Urine WBC 1 - 3, Ur Epithelial Cells 3 - 4, Urine Bacteria Trace Disposition/Present on Arrival - Present on Arrival Any Indicators Present on Arrival: No History of DVT/PE: No History of Uncontrolled Diabetes: No Urinary Catheter: No History of Decub. Ulcer: No History Surgical Site Infection Following: None - Disposition Have Diagnosis and Disposition been Completed?: Yes Diagnosis: Bacterial vaginosis, Allergic reaction Disposition: HOME/ ROUTINE Disposition Time: 17:19 Patient Plan: Discharge Patient Problems: Current Active Problems Problem Status Onset Allergic reaction Acute Bacterial vaginosis Acute Condition: STABLE Discharge Instructions (ExitCare): Bacterial Vaginosis, Vaginal Yeast Infection (DC) Prescriptions: hydrOXYzine HCl [Atarax] 25 mg PO BID #10 tab metroNIDAZOLE [Flagyl] 500 mg PO BID #10 tab Miconazole [Miconazole 7] 1 supp VG HS #7 sup Forms: [employer] (Kuwaiti)
[2018-06-01 16:55] LABS: URINE APPEARANCE CLEAR (CLEAR); URINE BILIRUBIN NEGATIVE (NEGATIVE); URINE BLOOD NEGATIVE (NEGATIVE); URINE COLOR YELLOW (YELLOW); URINE GLUCOSE (UA) NEGATIVE (NEGATIVE); URINE LEUKOCYTE ESTERASE TRACE Leu/uL (NEGATIVE); URINE PROTEIN NEGATIVE mg/dL (<30 mg/dL)
[2018-06-01 17:01] LABS: URINE BACTERIA TRACE (NEG); URINE RBC 0 - 2 /hpf (0-2)
[2018-06-01 18:23] VITALS: BP 122/73; PULSE 82; RESP 18; TEMP 98.4; O2SAT 98
== END 2018-06-01 18:00 | disposition home or self-care (01) ==
LOC: ED 15:58
DX: N76.0 Acute vaginitis (principal); T78.40XA Allergy, unspecified, initial encounter

== ENCOUNTER 2018-10-02 17:52 | Emergency (ER) | payer MEDICAID, OTHER ==
[2018-10-02 17:52] VITALS: BMI 32.3
[2018-10-02 18:03] VITALS: BP 140/82; PULSE 85; RESP 19; TEMP 98.7; O2SAT 100
--- NOTE | 2018-10-02 18:29 | ED PDOC ---
Arrival/HPI - General Chief Complaint: Cough, Cold, Congestion - History of Present Illness Narrative History of Present Illness (Text): 23 y/o F w/ h/o candidal vulvovaginitis presenting to the Emergency Department complaining of chest discomfort ongoing for the last 3 days. She reports having no productive cough with sinus congestion causing her to have chest discomfort. She reports having a pruritic, whitish thick discharge with associated burning from her vagina that she noticed worsening within the last 24 hours. She reports worsening of her symptoms with urination. She denies any changes in sexual partners within the last 6 months and reports a similar episode several months prior where she was prescribed Diflucan with intravaginal Flagyl with complete resolution of her symptoms. The patient denies any family history of diabetes & reports her LMP 3 weeks. Time/Duration: < week Symptom Onset: Gradual Symptom Course: Worsening Severity Level: Moderate Activities at Onset: Rest Context: Home Past Medical History - Provider Review Nursing Documentation Reviewed: Yes - Travel History Have you recently traveled outside [place] w/in the past 3 mons?: No - Past History Past History: No Previous - Infectious Disease Hx of Infectious Diseases: None - Tetanus Immunization Tetanus Immunization: Up to Date - Past Medical History Past Medical History: No Previous - Cardiac Hx Cardiac Disorders: Yes Hx Heart Murmur: Yes - Pulmonary Hx Respiratory Disorders: No - Neurological Hx Neurological Disorder: No - HEENT Hx HEENT Disorder: No - Renal Hx Renal Disorder: No - Endocrine/Metabolic Hx Endocrine Disorders: No - Hematological/Oncological Hx Blood Disorders: No - Integumentary Hx Dermatological Disorder: No - Musculoskeletal/Rheumatological Hx Musculoskeletal Disorders: No - Gastrointestinal Hx Gastrointestinal Disorders: No - Genitourinary/Gynecological Hx Genitourinary Disorders: Yes Other/Comment: YEAST INFECTION - Psychiatric Hx Psychophysiologic Disorder: No Hx Substance Use: No - Past Surgical History Past Surgical History: No Previous - Anesthesia Hx Anesthesia: No Hx Anesthesia Reactions: No Hx Malignant Hyperthermia: No - Suicidal Assessment Feels Threatened In Home Enviroment: No Family/Social History - Physician Review Nursing Documentation Reviewed: Yes Family/Social History: Unknown Family HX Smoking Status: Never Smoked Hx Alcohol Use: No Hx Substance Use: No Hx Substance Use Treatment: No Allergies/Home Meds Allergies/Adverse Reactions: Allergies No Known Allergies Allergy (Verified 10/02/18 18:03) Review of Systems - Physician Review All systems were reviewed & negative as marked: Yes - Review of Systems Genitourinary Female: Dysuria, Vaginal Discharge. absent: Frequency, Hematuria Physical Exam Vital Signs Reviewed: Yes Vital Signs Temp Pulse Resp BP Pulse Ox 10/02/18 17:59 98.7 F 85 19 140/82 100 Temperature: Afebrile Blood Pressure: Normal Pulse: Regular Respiratory Rate: Normal Appearance: Positive for: Well-Appearing, Non-Toxic, Comfortable Mental Status: Positive for: Alert and Oriented X 3 - Systems Exam Head: Present: Atraumatic, Normocephalic Pupils: Present: PERRL Extroacular Muscles: Present: EOMI Conjunctiva: Present: Normal Mouth: Present: Moist Mucous Membranes Neck: Present: Normal Range of Motion Respiratory/Chest: Present: Clear to Auscultation, Good Air Exchange. No: Respiratory Distress, Accessory Muscle Use Cardiovascular: Present: Regular Rate and Rhythm, Normal S1, S2. No: Murmurs Abdomen: Present: Normal Bowel Sounds. No: Tenderness, Distention, Peritoneal Signs Genitourinary/Pelvic Exam: Present: Normal External Genitalia, Vaginal Discharge (thin white viscous secretion), Cervical os Closed, Other (pain with insertion of finger). No: Vaginal Bleeding, Vaginal Lesions, Adenexal Tenderness, Odor Upper Extremity: Present: Normal Inspection, NORMAL PULSES. No: Cyanosis, Edema Lower Extremity: Present: Normal Inspection. No: Edema Neurological: Present: GCS=15, CN II-XII Intact, Speech Normal Skin: Present: Warm, Dry, Normal Color. No: Rashes Psychiatric: Present: Alert, Oriented x 3, Normal Insight, Normal Concentration Medical Decision Making ED Course and Treatment: 10/02/18 18:33 Impression 23 y/o F w/ h/o vulvovaginal candiditis presenting with URI symptoms and vaginal discharge Differential Diagnoses Include But Is Not Limited To: --Candidal Vulvovaginitis --Bacterial Vaginosis --Trichomoniasis --PID Plan --UA --Upreg --Urine Culture --Diflucan Progress Notes - Medication Orders Current Medication Orders: Fluconazole (Diflucan) 150 mg PO STAT STA; Protocol Stop: 10/02/18 18:16 Disposition/Present on Arrival - Present on Arrival Any Indicators Present on Arrival: No History of DVT/PE: No History of Uncontrolled Diabetes: No Urinary Catheter: No History of Decub. Ulcer: No History Surgical Site Infection Following: None - Disposition Have Diagnosis and Disposition been Completed?: Yes Diagnosis: Acute rhinosinusitis, Vulvovaginal candidiasis Disposition: HOME/ ROUTINE Disposition Time: 18:44 Patient Plan: Discharge Condition: STABLE Discharge Instructions (ExitCare): Bacterial Upper Respiratory Infection, Adult (DC), Vaginal Yeast Infection (DC) Print Language: SCOTTISH Prescriptions: Metronidazole [Flagyl] 500 mg PO BID #14 tab Referrals: Rochelle Cat MD [Medical Doctor] - [place] up with [place] [facility] [place] [facility] [place] - Follow up with primary Forms: [employer] (Vietnamese), WORK NOTE
[2018-10-02 18:35] LABS: PH,URINE 6.5 (4.7-8.0); URINE BILIRUBIN NEGATIVE (NEGATIVE); URINE BLOOD NEGATIVE (NEGATIVE); URINE GLUCOSE (UA) NEGATIVE (NEGATIVE); URINE LEUKOCYTE ESTERASE NEGATIVE Leu/uL (NEGATIVE); URINE PROTEIN NEGATIVE mg/dL (<30 mg/dL); URINE UROBILINOGEN 0.2 E.U./dL (<1 E.U./dL)
[2018-10-02] MEDS ORDERED: guaiFENesin 200 mg/10 ml Syrup UD PO STA (18:37)
[2018-10-02 18:41] LABS: URINE APPEARANCE CLEAR (CLEAR); URINE COLOR YELLOW (YELLOW)
== END 2018-10-02 18:57 | disposition home or self-care (01) ==
LOC: ED 17:52
DX: J01.90 Acute sinusitis, unspecified (principal); B37.3 Candidiasis of vulva and vagina

== ENCOUNTER 2018-11-28 16:23 | Emergency (ER) | payer MEDICAID, OTHER ==
[2018-11-28 16:55] VITALS: BMI 30.7
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
[2018-11-28 17:39] VITALS: BP 139/95; PULSE 86; RESP 18; TEMP 98.7; O2SAT 97
== END 2018-11-28 18:31 | disposition home or self-care (01) ==
LOC: ED 16:23
DX: S33.5XXA Sprain of ligaments of lumbar spine, initial encounter (principal); V89.2XXA Person injured in unspecified motor-vehicle accident, traffic, initial encounter